=== PATIENT | female | born 1995 | race Caucasian/White ===

== ENCOUNTER 2018-04-10 16:47 | Emergency (ER) | payer OTHER, SELFPAY ==
[2018-04-10 17:07] VITALS: BP 142/88; PULSE 90; RESP 13; TEMP 36.3; O2SAT 100
[2018-04-10 18:00] VITALS: BP 134/68; PULSE 81; O2SAT 98
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
[2018-04-10 19:52] VITALS: BP 138/72; PULSE 92; RESP 17; O2SAT 97
== END 2018-04-10 20:39 | disposition home or self-care (01) ==
PROVIDERS: Emergency Provider Emergency Medicine
DX: S16.1XXA Strain of muscle, fascia and tendon at neck level, initial encounter (principal); S39.012A Strain of muscle, fascia and tendon of lower back, initial encounter; V89.2XXA Person injured in unspecified motor-vehicle accident, traffic, initial encounter
CPT/HCPCS: 72040; 72072; 72100; 72125; 81025; 99283; 99284